=== PATIENT | male | born 1995 | race American Indian/Alaskan Native ===

== ENCOUNTER 2016-06-13 13:56 | Emergency (ER) | payer SELFPAY ==
[2016-06-13] MEDS ORDERED: RABAVERT RABIES VACCINE(PCEC) IM ONE (16:44)
[2016-06-13] MEDS ORDERED: hyperRAB S/D IM ONE (16:44)
[2016-06-13] MEDS ORDERED: BOOSTRIX IM ONE (16:47)
--- NOTE | 2016-06-13 18:11 | XRay Report ---
FINAL REPORT EXAM: XR FINGER(S) 2 LT HISTORY: dog bite abrasion to left thumb COMPARISONS: None. FINDINGS: Three views left thumb No bone lesion, periosteal reaction, or fracture. No deformity or gross malalignment. No radiodense foreign body. IMPRESSION: No radiodense foreign body or fracture in the left thumb.
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
[2016-06-13 18:42] VITALS: BP 128/70
== END 2016-06-13 18:41 | disposition home or self-care (01) ==
LOC: ED 13:56
DX: S61.051A Open bite of right thumb without damage to nail, initial encounter (principal); L08.9 Local infection of the skin and subcutaneous tissue, unspecified; J45.909 Unspecified asthma, uncomplicated; F12.10 Cannabis abuse, uncomplicated; W54.0XXA Bitten by dog, initial encounter; Y93.89 Activity, other specified; Y92.89 Other specified places as the place of occurrence of the external cause; Y99.8 Other external cause status
CPT/HCPCS: 90375; 90471; 90675; 90715

== ENCOUNTER 2018-09-15 18:21 | Emergency (ER) | payer SELFPAY ==
[2018-09-15 18:51] LABS: Hematocrit 41.7 % (35.5-45.6); Hemoglobin 14.3 gm/dl (11.8-15.2); Mean Corpuscular HGB Conc 34 % (32-34); Mean Corpuscular Volume 93 fl (84-94); Platelet Count 188 K/mm3 (140-440); Red Blood Count 4.49 M/mm3 (3.65-5.03); Red Cell Distribution Width 13.4 % (13.2-15.2)
[2018-09-15] MEDS ORDERED: KEPPRA 1,000 MG/NS 0.75% 100ML 1,000 MG/100 ML BAG IV ONE (19:03)
[2018-09-15 19:07] LABS: BUN/Creatinine Ratio 10; Blood Urea Nitrogen 13 mg/dL (9-20); Calcium 8.6 mg/dL (8.4-10.2); Hemolysis Index 28
[2018-09-15] MEDS ORDERED: ZOFRAN IV ONE (19:08)
[2018-09-15] MEDS ORDERED: TORADOL IV ONE (19:08)
--- NOTE | 2018-09-15 19:39 | Emergency Department Report ---
ED Seizure HPI - General Chief Complaint: Seizure Stated Complaint: SEIZURE Time Seen by Provider: 09/15/18 19:02 Source: patient Mode of arrival: Stretcher Limitations: No Limitations - History of Present Illness Initial Comments: 23-year-old male with past medical history of seizure disorder and asthma since the hospital after having 2 seizures prior to arrival. Patient has a history of seizures but cannot recall the last time he had medication. Complains of global headache and has nausea with one episode of vomiting. He denies neck pain, chest pain, abdominal pain, tongue abrasion/laceration, or urinary incontinence. He has a moderate headache without aggravating or alleviating factors. No focal weakness or numbness reported. Patient has an abrasion to his chin and abrasions to his hands. Patient is to get a tetanus shot within 10 years. - Related Data Previous Rx's Medication Instructions Recorded Last Taken Type Amoxicillin/K Clav Tab [Augmentin 1 tab PO Q12HR #14 tab 06/13/16 Unknown Rx 875 mg] Bacitracin/Polymixin B [Polysporin] 1 applicatio TP TID #1 tube 09/15/18 Unknown Rx Ondansetron [Zofran Odt] 4 mg PO Q8HR PRN #14 tab.rapdis 09/15/18 Unknown Rx levETIRAcetam [Keppra TAB] 500 mg PO BID #60 tablet 09/15/18 Unknown Rx Allergies Allergy/AdvReac Type Severity Reaction Status Date / Time No Known Allergies Allergy Verified 04/23/18 15:26 ED Review of Systems ROS: Stated complaint: SEIZURE Other details as noted in HPI Comment: All other systems reviewed and negative ED Past Medical Hx - Past Medical History Previous Medical History?: Yes Hx Seizures: Yes Hx Asthma: Yes - Surgical History Past Surgical History?: No - Social History Smoking Status: Current Every Day Smoker Substance Use Type: Alcohol - Medications Home Medications: Home Medications Medication Instructions Recorded Confirmed Last Taken Type Amoxicillin/K Clav Tab [Augmentin 1 tab PO Q12HR #14 tab 06/13/16 Unknown Rx 875 mg] Bacitracin/Polymixin B [Polysporin] 1 applicatio TP TID #1 tube 09/15/18 Unknown Rx Ondansetron [Zofran Odt] 4 mg PO Q8HR PRN #14 tab.rapdis 09/15/18 Unknown Rx levETIRAcetam [Keppra TAB] 500 mg PO BID #60 tablet 09/15/18 Unknown Rx ED Physical Exam - General Limitations: No Limitations - Other Other exam information: General: No limitations, patient is alert in no acute distress Head exam: Right chin abrasion, no scalp hematoma Eyes exam: Normal appearance, pupils equal reactive to light, extraocular movements intact ENT: Moist mucous membrane, normal oropharynx Neck exam: Normal inspection, full range of motion, no meningismus nontender Respiratory exam: Clear to auscultation bilateral, no wheezes, rales, crackles Cardiovascular: Normal rate and rhythm, normal heart sounds Abdomen: Soft, nondistended, and nontender, with normal bowel sounds, no rebound, or guarding Extremity: Full range of motion normal inspection no deformity Back: Normal Inspection, full range of motion, no tenderness Neurologic: Alert, oriented x3, cranial nerves intact, no motor or sensory deficit Psychiatric: normal affect, normal mood Skin: Abrasions to hand and right side of chin ED Course Vital Signs 09/15/18 09/15/18 09/15/18 18:22 18:25 18:30 Temperature 98.1 F Pulse Rate 79 102 H 82 Respiratory 27 H 18 25 H Rate Blood Pressure 140/80 117/71 Blood Pressure [Left] O2 Sat by Pulse 98 99 99 Oximetry 09/15/18 20:09 Temperature 98.3 F Pulse Rate 82 Respiratory 21 Rate Blood Pressure Blood Pressure 116/68 [Left] O2 Sat by Pulse 96 Oximetry ED Medical Decision Making - Lab Data Result diagrams: 09/15/18 18:41 09/15/18 18:41 Lab Results 09/15/18 09/15/18 09/15/18 Range/Units 18:41 18:41 18:47 WBC 10.6 (4.5-11.0) K/mm3 RBC 4.49 (3.65-5.03) M/mm3 Hgb 14.3 (11.8-15.2) gm/dl Hct 41.7 (35.5-45.6) % MCV 93 (84-94) fl MCH 32 (28-32) pg MCHC 34 (32-34) % RDW 13.4 (13.2-15.2) % Plt Count 188 (140-440) K/mm3 Sodium 141 (137-145) mmol/L Potassium 4.1 (3.6-5.0) mmol/L Chloride 107.5 H (98-107) mmol/L Carbon Dioxide 25 (22-30) mmol/L Anion Gap 13 mmol/L BUN 13 (9-20) mg/dL Creatinine 1.3 (0.8-1.5) mg/dL Estimated GFR > 60 ml/min BUN/Creatinine Ratio 10 % Glucose 98 (75-100) mg/dL POC Glucose 100 (70-105) Calcium 8.6 (8.4-10.2) mg/dL Total Creatine Kinase 512 H (55-170) units/L - Radiology Data Radiology results: report reviewed CT head/brain wo con INDICATION / CLINICAL INFORMATION: Seizure with headache and vomiting. TECHNIQUE: All CT scans at this location are performed using CT dose reduction for ALARA by means of automated exposure control. COMPARISON: 04/23/2018. FINDINGS: The ventricular system is normal in size and configuration. No focal lesion or mass effect is seen. There is no evidence of intracranial hemorrhage or major vessel occlusion. The visualized paranasal sinuses and mastoid air cells are clear. IMPRESSION: No acute intracranial abnormality. - Medical Decision Making Workup unremarkable including CT head. Symptoms are secondary to medication noncompliance. Patient given Keppra in ED and will be prescribed Keppra and neurology outpatient follow-up. - Differential Diagnosis seizure, medication noncompliance, intracranial injury Critical Care Time: No Critical care attestation.: If time is entered above; I have spent that time in minutes in the direct care of this critically ill patient, excluding procedure time. ED Disposition Clinical Impression: Seizure, Noncompliance with medication regimen, Abrasion, Nausea and vomiting Disposition: DC-01 TO HOME OR SELFCARE Is pt being admited?: No Does the pt Need Aspirin: No Condition: Stable Instructions: Epilepsy (ED), Abrasion (ED) Additional Instructions: Take the medication as prescribed. Follow up with your doctor or the clinic/doc tor provided. Return if symptoms worsen as indicated by your discharge instructions Prescriptions: levETIRAcetam [Keppra TAB] 500 mg PO BID #60 tablet Bacitracin/Polymixin B [Polysporin] 1 applicatio TP TID #1 tube Ondansetron [Zofran Odt] 4 mg PO Q8HR PRN #14 tab.rapdis PRN Reason: Nausea And Vomiting Referrals: [facility] MD JOSE LUIS [Primary Care Provider] - 3-5 Days SOCRATES BRICE MD [Staff Physician] - 3-5 Days (Neurologist) VIKI HERNANDEZ MD [Staff Physician] - 3-5 Days (Neurologist) Time of Disposition: 20:44
--- NOTE | 2018-09-15 20:31 | Cat Scan Report ---
CT head/brain wo con INDICATION / CLINICAL INFORMATION: Seizure with headache and vomiting. TECHNIQUE: All CT scans at this location are performed using CT dose reduction for ALARA by means of automated e xposure control. COMPARISON: 04/23/2018. FINDINGS: The ventricular system is normal in size and configuration. No focal lesion or mass effect is seen. T here is no evidence of intracranial hemorrhage or major vessel occlusion. The visualized paranasal si nuses and mastoid air cells are clear. IMPRESSION: No acute intracranial abnormality. Signer Name: Taurus Stanley MD Signed: 09/15/2018 8:26 PM Workstation Name: [id number]
[2018-09-15 21:16] VITALS: BP 106/57
== END 2018-09-15 21:20 | disposition home or self-care (01) ==
LOC: ED 18:21
DX: S00.81XA Abrasion of other part of head, initial encounter (principal); S60.512A Abrasion of left hand, initial encounter; S60.511A Abrasion of right hand, initial encounter; G40.909 Epilepsy, unspecified, not intractable, without status epilepticus; J45.909 Unspecified asthma, uncomplicated; F17.200 Nicotine dependence, unspecified, uncomplicated; R11.2 Nausea with vomiting, unspecified; X58.XXXA Exposure to other specified factors, initial encounter; Y93.89 Activity, other specified; Y92.89 Other specified places as the place of occurrence of the external cause; Y99.8 Other external cause status
CPT/HCPCS: 36415; 70450; 80048; 80177; 82550; 82962; 85027; J1885; J1953; J2405; 96374; 96375